=== PATIENT | male | born 1990 | race Two or more races ===

== ENCOUNTER 2022-07-04 03:18 | Emergency (ER) | payer MEDICAID, OTHER ==
[~2022-07-04] VITALS: Ht 175.3 cm; Wt 72.0 kg
[2022-07-04 03:18] VITALS: BP 152/90
[2022-07-04 03:47] LABS: Urine Bacteria NONE SEEN /hpf (None Seen); Urine Blood Negative /uL (Negative); Urine Specific Gravity 1.015 (1.001-1.035); Urine WBC <1 /hpf (0 - 3)
[2022-07-04] MEDS ORDERED: cefTRIAXone SOD 1,000 MG VL IM ONE (05:45)
[2022-07-04] MEDS ORDERED: OXYCODONE W/ ACETAMINOPHEN 5/325MG TABLET PO ONE (05:45)
[2022-07-04] MEDS ORDERED: IBUPROFEN 800 MG TAB PO ONE (06:30)
== END 2022-07-04 07:31 | disposition home or self-care (01) ==
LOC: EDBD 03:18 → ER 03:18
DX: N34.2 Other urethritis (principal); Z87.440 Personal history of urinary (tract) infections
CPT/HCPCS: 74176; 81001; 99284; J0696